=== PATIENT | male | born 1960 | race Caucasian/White ===

== ENCOUNTER 2016-03-30 16:17 | Outpatient (RCR) | payer MEDICAID ==
--- OUTSIDE RECORDS SUMMARY | 2016-02-20 13:42 | XMS REPORT | Continuity of Care Document ---
Author Author [facility] Organization [facility] Address Unknown Phone Unavailable Care Team Providers Care Supervisor Mail Carriers Name Role Phone Unknown, Unknown PCP Unavailable Source Comments Some departments are not documenting in the electronic medical record. If you do not see the information that you expected, contact Release of Information in the Health Information Management department at [phone] for further assistance in locating additional records.[facility] Active Allergies and Adverse Reactions No Known Allergies Current Medications Prescription Sig. Disp. Refills Start End Date Status Date metFORMIN (GLUCOPHAGE) Take 500 mg by mouth Active 500 mg tablet twice daily with meals. OXYCODONE HCL (OXYCODONE Take by mouth as Needed. Active PO) Active Problems Problem Noted Date DLBCL (diffuse large B cell lymphoma) (HCC) 03/26/2014 Testicular mass 03/05/2014 Social History Tobacco Use Types Packs/Day Years Used Date Current Every Day Smoker Cigars 1 40 Smokeless Tobacco: Never Used Alcohol Use Drinks/Week oz/Week Comments Yes occasionally Last Filed Vital Signs Vital Sign Reading Time Taken Blood Pressure 130/79 03/26/2014 2:36 PM TELEPHONE OPERATOR RECEPTIONIST Pulse 78 03/26/2014 2:36 PM TELEPHONE OPERATOR RECEPTIONIST Temperature 36.6 C (97.9 F) 03/26/2014 2:36 PM TELEPHONE OPERATOR RECEPTIONIST Respiratory Rate - - Height 1.749 m (5' 8.85") 03/26/2014 2:36 PM TELEPHONE OPERATOR RECEPTIONIST Weight 102.694 kg (226 lb 6.4 03/26/2014 2:36 PM TELEPHONE OPERATOR RECEPTIONIST oz) Body Mass Index 33.57 03/26/2014 2:36 PM TELEPHONE OPERATOR RECEPTIONIST Oxygen Saturation 96% 03/26/2014 2:36 PM TELEPHONE OPERATOR RECEPTIONIST Plan of Care Health Maintenance Due Date Last Done Comments Hepatitis C Screening 1960 Physical (Comprehensive) 09/13/1967 Exam Pertussis Vaccine 09/13/1971 Tetanus Vaccine 1977 Colorectal Cancer 2010 Screening Influenza Vaccine 01/09/2016 Results from Last 3 Months Not on file
[2016-02-20 13:54] LABS: BASOPHILS % (AUTO) 1 % (0-10); EOSINOPHILS # (AUTO) 0.2 10^3/uL (0.0-0.3); EOSINOPHILS % (AUTO) 3 % (0-10); LYMPHOCYTES # (AUTO) 1.8 X 10^3 (1.0-4.0); LYMPHOCYTES % (AUTO) 25 % (12-44); MEAN CORPUSCULAR HEMOGLOBIN 33 PG (25-34); MEAN CORPUSCULAR HGB CONC 36 G/DL (32-36); MEAN CORPUSCULAR VOLUME 93 FL (80-99); MEAN PLATELET VOLUME 10.9 FL (7.4-10.4); MONOCYTES # (AUTO) 0.7 X 10^3 (0.0-1.0); MONOCYTES % (AUTO) 10 % (0-12); NEUTROPHILS # (AUTO) 4.2 X 10^3 (1.8-7.8); NEUTROPHILS % (AUTO) 61 % (42-75); PLATELET COUNT 215 10^3/uL (130-400); RED CELL DISTRIBUTION WIDTH 13.2 % (10.0-14.5); WHITE BLOOD COUNT 6.9 10^3/uL (4.3-11.0)
[2016-02-20 14:59] LABS: ALANINE AMINOTRANSFERASE 16 U/L (0-55); ALBUMIN 3.7 G/DL (3.2-4.5); ANION GAP 9 MMOL/L (5-14); ASPARTATE AMINO TRANSFERASE 16 U/L (5-34); BILIRUBIN,TOTAL 0.4 MG/DL (0.1-1.0); BLOOD UREA NITROGEN 8 MG/DL (7-18); BUN/CREATININE RATIO 12; CALCIUM 8.5 MG/DL (8.5-10.1); CARBON DIOXIDE 24 MMOL/L (21-32); CHLORIDE 103 MMOL/L (98-107); CREATININE SERUM 0.65 MG/DL (0.60-1.30); GFR ESTIMATED > 60; GLUCOSE 193 MG/DL (70-105); POTASSIUM 3.9 MMOL/L (3.6-5.0); SODIUM 136 MMOL/L (135-145); TOTAL PROTEIN 6.4 G/DL (6.4-8.2)
[~2016-03-30 16:17] MED LIST: ASP81CT; CIPR500T78 PO; GLBR2.5T; HYDR-1231 PO; HYDR-2997 PO; LISI2.5T; MTF500T PO; PRAV10TA23
== END 2016-05-20 | disposition home or self-care (01) ==
LOC: ONC 16:17
PROVIDERS: ATTEND Internal Medicine Hematology & Oncology
DX: C83.39 Diffuse large B-cell lymphoma, extranodal and solid organ sites (principal); E11.42 Type 2 diabetes mellitus with diabetic polyneuropathy; E29.1 Testicular hypofunction; F17.210 Nicotine dependence, cigarettes, uncomplicated; Z92.21 Personal history of antineoplastic chemotherapy; Z79.4 Long term (current) use of insulin; Z79.899 Other long term (current) drug therapy; Z45.2 Encounter for adjustment and management of vascular access device
CPT/HCPCS: 36591; 80053; 85025; 96523; 99213

== ENCOUNTER 2016-05-21 14:38 | Outpatient (RCR) | payer SELFPAY ==
[2016-05-21 14:23] LABS: BASOPHILS # (AUTO) 0.1 10^3/uL (0.0-0.1); BASOPHILS % (AUTO) 1 % (0-10); EOSINOPHILS # (AUTO) 0.3 10^3/uL (0.0-0.3); EOSINOPHILS % (AUTO) 4 % (0-10); LYMPHOCYTES # (AUTO) 2.1 X 10^3 (1.0-4.0); LYMPHOCYTES % (AUTO) 28 % (12-44); MEAN CORPUSCULAR HEMOGLOBIN 33 PG (25-34); MEAN CORPUSCULAR HGB CONC 35 G/DL (32-36); MEAN CORPUSCULAR VOLUME 94 FL (80-99); MEAN PLATELET VOLUME 10.7 FL (7.4-10.4); MONOCYTES # (AUTO) 0.7 X 10^3 (0.0-1.0); MONOCYTES % (AUTO) 9 % (0-12); NEUTROPHILS # (AUTO) 4.3 X 10^3 (1.8-7.8); NEUTROPHILS % (AUTO) 58 % (42-75); PLATELET COUNT 216 10^3/uL (130-400); RED BLOOD COUNT 4.74 10^6/uL (4.35-5.85); RED CELL DISTRIBUTION WIDTH 13.7 % (10.0-14.5); WHITE BLOOD COUNT 7.5 10^3/uL (4.3-11.0)
--- OUTSIDE RECORDS SUMMARY | 2016-05-21 14:41 | XMS REPORT | Continuity of Care Document ---
Author Author [facility] Organization [facility] Address Unknown Phone Unavailable Care Team Providers Care Egg Breaking Machine Operator Name Role Phone Unknown, Unknown PCP Unavailable Source Comments Some departments are not documenting in the electronic medical record. If you do not see the information that you expected, contact Release of Information in the Health Information Management department at [phone] for further assistance in locating additional records.[facility] Active Allergies and Adverse Reactions No Known [...] Taken Blood Pressure 130/79 03/26/2014 2:36 PM CURRENCY EXCHANGE SPECIALIST Pulse 78 03/26/2014 2:36 PM CURRENCY EXCHANGE SPECIALIST Temperature 36.6 C (97.9 F) 03/26/2014 2:36 PM CURRENCY EXCHANGE SPECIALIST Respiratory Rate - - Height 1.749 m (5' 8.85") 03/26/2014 2:36 PM CURRENCY EXCHANGE SPECIALIST Weight 102.694 kg (226 lb 6.4 03/26/2014 2:36 PM CURRENCY EXCHANGE SPECIALIST oz) Body Mass Index 33.57 03/26/2014 2:36 PM CURRENCY EXCHANGE SPECIALIST Oxygen Saturation 96% 03/26/2014 2:36 PM CURRENCY EXCHANGE SPECIALIST Plan of Care Health Maintenance Due Date Last Done Comments Hepatitis C Screening 1960 Physical (Comprehensive) 09/13/1967 Exam Pertussis Vaccine 09/13/1971 Tetanus Vaccine 1977 Colorectal Cancer 2010 Screening Influenza Vaccine 01/09/2016 Results from Last 3 Months Not on file
[2016-05-21 15:01] LABS: ALANINE AMINOTRANSFERASE 14 U/L (0-55); ANION GAP 7 MMOL/L (5-14); ASPARTATE AMINO TRANSFERASE 13 U/L (5-34); BILIRUBIN,TOTAL 0.6 MG/DL (0.1-1.0); BLOOD UREA NITROGEN 9 MG/DL (7-18); BUN/CREATININE RATIO 14; CALCIUM 8.5 MG/DL (8.5-10.1); CARBON DIOXIDE 23 MMOL/L (21-32); CHLORIDE 104 MMOL/L (98-107); CREATININE SERUM 0.66 MG/DL (0.60-1.30); GFR ESTIMATED > 60; GLUCOSE 209 MG/DL (70-105); LACTATE DEHYDROGENASE 185 U/L (125-220); SODIUM 134 MMOL/L (135-145); TOTAL PROTEIN 6.3 G/DL (6.4-8.2)
[2016-08-13 14:21] LABS: BASOPHILS # (AUTO) 0.1 10^3/uL (0.0-0.1); BASOPHILS % (AUTO) 1 % (0-10); EOSINOPHILS # (AUTO) 0.1 10^3/uL (0.0-0.3); EOSINOPHILS % (AUTO) 1 % (0-10); LYMPHOCYTES # (AUTO) 1.6 X 10^3 (1.0-4.0); LYMPHOCYTES % (AUTO) 12 % (12-44); MEAN CORPUSCULAR HEMOGLOBIN 33 PG (25-34); MEAN CORPUSCULAR HGB CONC 35 G/DL (32-36); MEAN CORPUSCULAR VOLUME 95 FL (80-99); MEAN PLATELET VOLUME 11.1 FL (7.4-10.4); MONOCYTES % (AUTO) 7 % (0-12); NEUTROPHILS # (AUTO) 10.8 X 10^3 (1.8-7.8); NEUTROPHILS % (AUTO) 80 % (42-75); PLATELET COUNT 183 10^3/uL (130-400); RED BLOOD COUNT 4.84 10^6/uL (4.35-5.85); RED CELL DISTRIBUTION WIDTH 13.3 % (10.0-14.5); WHITE BLOOD COUNT 13.5 10^3/uL (4.3-11.0)
[2016-08-13 14:53] LABS: ALANINE AMINOTRANSFERASE 8 U/L (0-55); ALBUMIN 3.8 G/DL (3.2-4.5); ANION GAP 8 MMOL/L (5-14); ASPARTATE AMINO TRANSFERASE 11 U/L (5-34); BLOOD UREA NITROGEN 8 MG/DL (7-18); BUN/CREATININE RATIO 12; CALCIUM 8.7 MG/DL (8.5-10.1); CARBON DIOXIDE 25 MMOL/L (21-32); CHLORIDE 100 MMOL/L (98-107); CREATININE SERUM 0.67 MG/DL (0.60-1.30); GFR ESTIMATED > 60; GLUCOSE 199 MG/DL (70-105); LACTATE DEHYDROGENASE 152 U/L (125-220); POTASSIUM 4.2 MMOL/L (3.6-5.0); SODIUM 133 MMOL/L (135-145); TOTAL PROTEIN 6.3 G/DL (6.4-8.2)
== END 2016-08-13 13:38 | disposition home or self-care (01) ==
LOC: ONC 14:38
PROVIDERS: ATTEND Internal Medicine Hematology & Oncology
DX: C83.39 Diffuse large B-cell lymphoma, extranodal and solid organ sites (principal); E11.42 Type 2 diabetes mellitus with diabetic polyneuropathy; E29.1 Testicular hypofunction; F17.210 Nicotine dependence, cigarettes, uncomplicated; Z92.21 Personal history of antineoplastic chemotherapy; Z79.4 Long term (current) use of insulin; Z79.899 Other long term (current) drug therapy
CPT/HCPCS: 80053; 83615; 85025; 99213

== ENCOUNTER 2016-08-13 14:17 | Outpatient (RCR) | payer MEDICARE ==
[2016-12-29] MEDS ORDERED: VENL75CA PO (08:49)
[2016-12-30] MEDS ORDERED: HYDR-3820 PO (13:19)
== END 2016-11-11 | disposition home or self-care (01) ==
LOC: ONC 14:17
PROVIDERS: ATTEND Internal Medicine Hematology & Oncology
DX: C83.39 Diffuse large B-cell lymphoma, extranodal and solid organ sites (principal); E11.42 Type 2 diabetes mellitus with diabetic polyneuropathy; E29.1 Testicular hypofunction; F17.210 Nicotine dependence, cigarettes, uncomplicated; Z92.21 Personal history of antineoplastic chemotherapy; Z79.4 Long term (current) use of insulin; Z79.899 Other long term (current) drug therapy
CPT/HCPCS: 36591; 99213

== ENCOUNTER 2016-11-19 09:17 | Outpatient (RCR) | payer MEDICARE ==
[2016-11-19 09:33] LABS: BASOPHILS # (AUTO) 0.1 10^3/uL (0.0-0.1); BASOPHILS % (AUTO) 1 % (0-10); EOSINOPHILS # (AUTO) 0.3 10^3/uL (0.0-0.3); EOSINOPHILS % (AUTO) 4 % (0-10); LYMPHOCYTES # (AUTO) 2.7 X 10^3 (1.0-4.0); LYMPHOCYTES % (AUTO) 36 % (12-44); MEAN CORPUSCULAR HEMOGLOBIN 33 PG (25-34); MEAN CORPUSCULAR HGB CONC 34 G/DL (32-36); MEAN CORPUSCULAR VOLUME 96 FL (80-99); MONOCYTES # (AUTO) 0.7 X 10^3 (0.0-1.0); MONOCYTES % (AUTO) 9 % (0-12); NEUTROPHILS # (AUTO) 3.8 X 10^3 (1.8-7.8); NEUTROPHILS % (AUTO) 51 % (42-75); PLATELET COUNT 203 10^3/uL (130-400); RED BLOOD COUNT 4.75 10^6/uL (4.35-5.85); RED CELL DISTRIBUTION WIDTH 13.9 % (10.0-14.5); WHITE BLOOD COUNT 7.5 10^3/uL (4.3-11.0)
[2016-11-19 10:16] LABS: ALANINE AMINOTRANSFERASE 12 U/L (0-55); ALBUMIN 3.6 GM/DL (3.2-4.5); ANION GAP 8 MMOL/L (5-14); ASPARTATE AMINO TRANSFERASE 11 U/L (5-34); BILIRUBIN,TOTAL 0.3 MG/DL (0.1-1.0); BLOOD UREA NITROGEN 12 MG/DL (7-18); BUN/CREATININE RATIO 19; CALCIUM 8.2 MG/DL (8.5-10.1); CARBON DIOXIDE 23 MMOL/L (21-32); CHLORIDE 105 MMOL/L (98-107); CREATININE SERUM 0.62 MG/DL (0.60-1.30); GFR ESTIMATED > 60; GLUCOSE 146 MG/DL (70-105); LACTATE DEHYDROGENASE 224 U/L (125-220); POTASSIUM 4.1 MMOL/L (3.6-5.0); SODIUM 136 MMOL/L (135-145); TOTAL PROTEIN 6.3 GM/DL (6.4-8.2)
[2016-12-29] MEDS ORDERED: VENL75CA PO (08:49)
[2016-12-30] MEDS ORDERED: HYDR-3820 PO (13:19)
== END 2016-12-25 08:40 | disposition home or self-care (01) ==
LOC: ONC 09:17
PROVIDERS: ATTEND Internal Medicine Hematology & Oncology
DX: C83.39 Diffuse large B-cell lymphoma, extranodal and solid organ sites (principal); E11.42 Type 2 diabetes mellitus with diabetic polyneuropathy; E29.1 Testicular hypofunction; F17.210 Nicotine dependence, cigarettes, uncomplicated; Z92.21 Personal history of antineoplastic chemotherapy; Z79.4 Long term (current) use of insulin; Z79.899 Other long term (current) drug therapy
CPT/HCPCS: 36591; 80053; 83615; 85025

== ENCOUNTER 2016-12-29 09:00 | Outpatient (CLI) | payer MEDICARE ==
[~2016-12-29] VITALS: Ht 175.3 cm; Wt 108.9 kg
[~2016-12-29 09:00] MED LIST changes: +VENL75CA PO
[2016-12-30] MEDS ORDERED: HYDR-3820 PO (13:19)
== END 2016-12-29 09:47 ==
LOC: PREOP 09:00
PROVIDERS: ATTEND Surgery
DX: Z01.818 Encounter for other preprocedural examination (principal); C62.91 Malignant neoplasm of right testis, unspecified whether descended or undescended

== ENCOUNTER 2016-12-30 10:14 | Day surgery (SDC) | payer MEDICARE ==
[~2016-12-30] VITALS: Ht 175.3 cm; Wt 108.9 kg
[2016-12-30] MEDS ORDERED: ceFAZolin 1,000 MG (ANCEF) VIAL ONE (10:21)
[2016-12-30] MEDS ORDERED: NS (IVPB) 50 ML ONE (10:21)
[2016-12-30 10:30] VITALS: BP 123/80
[2016-12-30] MEDS ORDERED: BUP/EPI 0.5% 1:200,000 (MARCAINE) 10ML VIAL IJ ONE (10:58)
[2016-12-30] MEDS ORDERED: ceFAZolin 1 GM/NS 50 ML IVPB IV ONE ×2 (11:00)
[2016-12-30] MEDS ORDERED: proPOfol 200 MG/20 ML (DIPRIVAN) VIAL IV ONE (11:07)
[2016-12-30] MEDS ORDERED: LACTATED RINGERS 1,000 ML IV PRN (11:07)
[2016-12-30] MEDS ORDERED: fentaNYL INJECTION 100 MCG/2 ML AMP ONE (11:08)
[2016-12-30] MEDS ORDERED: MIDAZOLAM 2 MG/2 ML (VERSED) VIAL ONE (11:08)
[2016-12-30] MEDS ORDERED: PROPOFOL INJECTION 50 ML IV ONE (11:10)
--- NOTE | 2016-12-30 11:34 | Progress Note-Pre Operative ---
Pre-Operative Progress Note H&P Reviewed The H&P was reviewed, patient examined and no changes noted. 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
[2016-12-30] MEDS ORDERED: LACTATED RINGERS 1,000 ML IV ONE (13:08)
--- NOTE | 2016-12-30 13:17 | History & Physicial ---
History of Present Illness History of Present Illness Reason for visit/HPI For removal of [id number], having completed systemic chemotherapy for treated lymphoma of the testicle Date of Admission Date Seen by Provider: Dec 30, 2016 Time Seen by Provider: 09:45 I consulted on this patient on 12/30/16 13:15 Attending Physician Sumi Chahal MD Admitting Physician Aleyda Gross MD Consult Allergies and Home Medications Allergies Coded Allergies: NKANo Known Allergies (Unverified Allergy, Mild, 06/07/09) Home Medications Metformin Hcl 500 Mg Tab, 500 MG PO DAILY, (Reported) Venlafaxine HCl 75 Mg Cap.er.24h, 75 MG PO DAILY, (Reported) Past [id number] Hx Patient Social History Marrital Status: Employed/Student: employed, unemployed Alcohol Use: Denies Use Recreational Drug Use: No Smoking Status: Current Everyday Smoker Type Used: Cigarettes Recent Foreign Travel: No Contact w/other who traveled: No Recent Hopitalizations: No Recent Infectious Disease Expo: No Immunizations Up To Date Tetanus Booster (TDap): More than 5yrs Seasonal Allergies Seasonal Allergies: No Surgeries Testicular Endocrine Endocrine Disorders: Diabetes, Non-Insulin dep Cancer Testicular Blood Transfusions Adverse Reaction to a Blood Tr: No Constitutional: no symptoms reported EENTM: no symptoms reported Respiratory: no symptoms reported Cardiovascular: no symptoms reported Gastrointestinal: no symptoms reported Genitourinary: no symptoms reported Musculoskeletal: no symptoms reported Skin: no symptoms reported Psychiatric/Neurological: No Symptoms Reported Physical Exam Vital Signs Vital Sign - Last 12Hours 12/30/16 10:30 Temp 98.8 Pulse 79 Resp 18 B/P (MAP) 123/80 Pulse Ox 94 O2 Delivery Room Air Capillary Refill : General Appearance: No Apparent Distress HEENT: Normal ENT Inspection Neck: Normal Inspection Respiratory: Lungs Clear Cardiovascular: Regular Rate, Rhythm Extremity: Normal Inspection Neurologic/Psychiatric: Alert, Oriented x3 Assessment/Plan Assessment and Plan Gentleman with treated lymphoma of the testicle. 4 removal of Groshong catheter. Problems: Clinical Quality Measures DVT/VTE Risk/Contraindication: Risk Factor Score Per Nursin RFS Level Per Nursing on Admit: 4+=Very High SUMI CHAHAL MD Dec 30, 2016 1:16 pm
[2016-12-30] MEDS ORDERED: HYDR-3820 PO (13:19)
--- NOTE | 2016-12-30 13:19 | Operative Report ---
Operative Report Date of Procedure/Surgery Dec 30, 2016 Surgeon (s) SUMI CHAHAL MD Keycase Assembler (s): Not applicable Post-Operative Diagnosis Same Procedure Performed Removal of Groshong catheter Description of Procedure Anesthesia Type: MAC Estimated blood loss (mL): Minimal Specimen(s) collected/removed None Description of the Procedure Indication for procedure: This gentleman underwent high orchiectomy to manage lymphoma of the testicle and has since completed systemic chemotherapy. Having consulted with his oncologist, it was felt reasonable to remove his Groshong catheter. Informed consent was obtained after reviewing the procedure in detail. Description of procedure: He was placed supine on the operative table and our anesthesiologist administered sedation, monitoring his vital signs. Ancef was administered intravenously as prophylaxis against wound infection. Sequential compression devices were placed around his legs, to minimize the risk of venous thrombosis. Left infraclavicular fossa was prepared and draped in the usual sterile manner. Local anesthesia was achieved using 0.5 percent Marcaine with epinephrine. A secondary incision was made along the previous are and the Groshong catheter removed without risking air embolism. Hemostasis was achieved using cautery and the incision closed using 3-0 Vicryl for the subcutaneous tissue and 4-0 Vicryl for skin, in a subcuticular fashion He tolerated the procedure well and was taken back to the nursing area in a stable condition Findings of the Procedure See operative report Allergies and Home Medications Allergies Coded Allergies: NKANo Known Allergies (Unverified Allergy, Mild, 06/07/09) Home Medications Metformin Hcl 500 Mg Tab, 500 MG PO DAILY, (Reported) Venlafaxine HCl 75 Mg Cap.er.24h, 75 MG PO DAILY, (Reported) SUMI CHAHAL MD Dec 30, 2016 1:19 pm
--- NOTE | 2016-12-30 13:20 | Discharge Inst-Simple/Standard ---
Discharge Inst-Standard Discharge Medications New, Converted or Re-Newed RX: RX on Chart Patient Instructions/Follow Up Plan of Care/Instructions/FU: Dressing off in 48 hours. Activity as Tolerated: Yes Discharge Diet: No Restrictions SUMI CHAHAL MD Dec 30, 2016 1:20 pm
[2016-12-30] MEDS ORDERED: morphine INJ 10 MG/ML 1ML (SYR OR VIAL) IVP PRN (13:30)
[2016-12-30] MEDS ORDERED: ONDANSETRON 4 MG/2 ML (SDV) Z0FRAN IVP PRN (13:30)
[2016-12-30 13:40] VITALS: BP 119/60
[2016-12-30] MEDS ORDERED: HYDROcodone/APAP 10 MG/325 MG (LORTAB) TAB PO ONE ×2 (13:46→14:00)
[2016-12-30 14:10] VITALS: BP 138/84
== END 2016-12-30 14:10 | disposition home or self-care (01) ==
LOC: SDC 10:14
PROVIDERS: ATTEND Surgery
DX: C83.39 Diffuse large B-cell lymphoma, extranodal and solid organ sites (principal); E11.42 Type 2 diabetes mellitus with diabetic polyneuropathy; Z11.2 Encounter for screening for other bacterial diseases; Z79.899 Other long term (current) drug therapy; F17.210 Nicotine dependence, cigarettes, uncomplicated
CPT/HCPCS: 82962; 87081

== ENCOUNTER → 2017-01-15 | Outpatient (CLI) | payer OTHER ==
[~2017-01-15] MED LIST changes: +HYDR-3820 PO
--- NOTE | 2017-01-15 12:10 | Diagnostic Imaging Report ---
INDICATION: Left knee pain. AP and lateral views of the left knee show no fracture, dislocation, or other acute abnormalities. IMPRESSION: Negative left knee. Dictated by: Dictated on workstation # [id number]
--- NOTE | 2017-01-15 12:27 | Diagnostic Imaging Report ---
INDICATION: Low back pain for two years. Lumbar spine. AP and lateral views of the lumbar spine show degenerative disc changes at L1-L2. There is minimal spondylosis with anterior osteophytes at L3-L4 and L4-L5. There is excess bone arising from the posterior elements on the left at L2-L3 and L3-L4. This may be from a bony fusion but correlation with surgical history recommended. IMPRESSION: There are degenerative changes present in the lumbar spine. There is increased bone in the lumbar spine on the left at L2-L3 and L3-L4 which may be from a bone fusion but clinical correlation recommended. Dictated by: Dictated on workstation # [id number]
== END ==
LOC: RAD 09:57
PROVIDERS: ATTEND Surgery
DX: M47.816 Spondylosis without myelopathy or radiculopathy, lumbar region (principal); M25.562 Pain in left knee; E11.9 Type 2 diabetes mellitus without complications; F33.9 Major depressive disorder, recurrent, unspecified; C85.90 Non-Hodgkin lymphoma, unspecified, unspecified site
CPT/HCPCS: 72100; 73560

== ENCOUNTER 2017-04-20 14:50 | Outpatient (RCR) | payer MEDICARE ==
[2017-04-20 15:03] LABS: BASOPHILS # (AUTO) 0.1 10^3/uL (0.0-0.1); BASOPHILS % (AUTO) 1 % (0-10); EOSINOPHILS # (AUTO) 0.3 10^3/uL (0.0-0.3); EOSINOPHILS % (AUTO) 4 % (0-10); HEMATOCRIT 48 % (40-54); HEMOGLOBIN 16.6 G/DL (13.3-17.7); LYMPHOCYTES % (AUTO) 25 % (12-44); MEAN CORPUSCULAR HEMOGLOBIN 34 PG (25-34); MEAN CORPUSCULAR HGB CONC 35 G/DL (32-36); MEAN CORPUSCULAR VOLUME 97 FL (80-99); MEAN PLATELET VOLUME 11.2 FL (7.4-10.4); MONOCYTES # (AUTO) 0.5 X 10^3 (0.0-1.0); MONOCYTES % (AUTO) 6 % (0-12); NEUTROPHILS # (AUTO) 5.1 X 10^3 (1.8-7.8); NEUTROPHILS % (AUTO) 64 % (42-75); PLATELET COUNT 209 10^3/uL (130-400); RED BLOOD COUNT 4.96 10^6/uL (4.35-5.85)
[2017-04-20 15:29] LABS: ALANINE AMINOTRANSFERASE 12 U/L (0-55); ALKALINE PHOSPHATASE 107 U/L (40-136); BILIRUBIN,TOTAL 0.6 MG/DL (0.1-1.0); BUN/CREATININE RATIO 13; CARBON DIOXIDE 27 MMOL/L (21-32); CHLORIDE 101 MMOL/L (98-107); CREATININE SERUM 0.72 MG/DL (0.60-1.30); GFR ESTIMATED > 60; GLUCOSE 233 MG/DL (70-105); POTASSIUM 4.3 MMOL/L (3.6-5.0); SODIUM 137 MMOL/L (135-145); TOTAL PROTEIN 6.7 GM/DL (6.4-8.2)
== END 2017-07-19 | disposition home or self-care (01) ==
LOC: ONC 14:50
PROVIDERS: ATTEND Internal Medicine Hematology & Oncology
DX: C83.39 Diffuse large B-cell lymphoma, extranodal and solid organ sites (principal); E11.42 Type 2 diabetes mellitus with diabetic polyneuropathy; E29.1 Testicular hypofunction; F17.210 Nicotine dependence, cigarettes, uncomplicated; Z92.21 Personal history of antineoplastic chemotherapy; Z79.4 Long term (current) use of insulin; Z79.899 Other long term (current) drug therapy
CPT/HCPCS: 36415; 80053; 83615; 85025; 99213

== ENCOUNTER 2017-10-20 12:54 | Outpatient (RCR) | payer SELFPAY ==
[2017-10-20 13:11] LABS: BASOPHILS # (AUTO) 0.1 10^3/uL (0.0-0.1); BASOPHILS % (AUTO) 1 % (0-10); EOSINOPHILS # (AUTO) 0.3 10^3/uL (0.0-0.3); EOSINOPHILS % (AUTO) 4 % (0-10); HEMATOCRIT 48 % (40-54); HEMOGLOBIN 16.4 G/DL (13.3-17.7); LYMPHOCYTES # (AUTO) 2.4 X 10^3 (1.0-4.0); LYMPHOCYTES % (AUTO) 29 % (12-44); MEAN CORPUSCULAR HEMOGLOBIN 33 PG (25-34); MEAN CORPUSCULAR HGB CONC 35 G/DL (32-36); MEAN CORPUSCULAR VOLUME 97 FL (80-99); MEAN PLATELET VOLUME 11.4 FL (7.4-10.4); MONOCYTES # (AUTO) 0.7 X 10^3 (0.0-1.0); MONOCYTES % (AUTO) 8 % (0-12); NEUTROPHILS # (AUTO) 4.7 X 10^3 (1.8-7.8); NEUTROPHILS % (AUTO) 57 % (42-75); PLATELET COUNT 193 10^3/uL (130-400); RED BLOOD COUNT 4.93 10^6/uL (4.35-5.85); RED CELL DISTRIBUTION WIDTH 13.4 % (10.0-14.5); WHITE BLOOD COUNT 8.2 10^3/uL (4.3-11.0)
[2017-10-20 13:37] LABS: ALANINE AMINOTRANSFERASE 14 U/L (0-55); ALKALINE PHOSPHATASE 103 U/L (40-136); BILIRUBIN,TOTAL 0.4 MG/DL (0.1-1.0); BUN/CREATININE RATIO 14; CALCIUM 8.9 MG/DL (8.5-10.1); CARBON DIOXIDE 24 MMOL/L (21-32); CHLORIDE 105 MMOL/L (98-107); CREATININE SERUM 0.72 MG/DL (0.60-1.30); GFR ESTIMATED > 60; GLUCOSE 231 MG/DL (70-105); POTASSIUM 4.2 MMOL/L (3.6-5.0); SODIUM 138 MMOL/L (135-145); TOTAL PROTEIN 6.6 GM/DL (6.4-8.2)
== END 2018-01-18 | disposition home or self-care (01) ==
LOC: ONC 12:54
PROVIDERS: ATTEND Internal Medicine Hematology & Oncology
DX: C83.39 Diffuse large B-cell lymphoma, extranodal and solid organ sites (principal); E11.42 Type 2 diabetes mellitus with diabetic polyneuropathy; E29.1 Testicular hypofunction; F17.210 Nicotine dependence, cigarettes, uncomplicated; Z92.21 Personal history of antineoplastic chemotherapy; Z79.4 Long term (current) use of insulin; Z79.899 Other long term (current) drug therapy
CPT/HCPCS: 36415; 80053; 83615; 85025; 99213

== ENCOUNTER → 2018-06-27 | Outpatient (CLI) | payer MEDICARE, OTHER ==
[2018-06-27 15:20] LABS: BASOPHILS # (AUTO) 0.1 10^3/uL (0.0-0.1); BASOPHILS % (AUTO) 1 % (0-10); EOSINOPHILS # (AUTO) 0.4 10^3/uL (0.0-0.3); EOSINOPHILS % (AUTO) 4 % (0-10); HEMATOCRIT 46 % (40-54); HEMOGLOBIN 15.6 G/DL (13.3-17.7); LYMPHOCYTES # (AUTO) 2.3 X 10^3 (1.0-4.0); LYMPHOCYTES % (AUTO) 25 % (12-44); MEAN CORPUSCULAR HEMOGLOBIN 33 PG (25-34); MEAN CORPUSCULAR HGB CONC 34 G/DL (32-36); MEAN CORPUSCULAR VOLUME 97 FL (80-99); MEAN PLATELET VOLUME 11.3 FL (7.4-10.4); MONOCYTES # (AUTO) 0.7 X 10^3 (0.0-1.0); MONOCYTES % (AUTO) 7 % (0-12); NEUTROPHILS # (AUTO) 5.9 X 10^3 (1.8-7.8); NEUTROPHILS % (AUTO) 63 % (42-75); PLATELET COUNT 194 10^3/uL (130-400); RED CELL DISTRIBUTION WIDTH 13.6 % (10.0-14.5); WHITE BLOOD COUNT 9.3 10^3/uL (4.3-11.0)
[2018-06-27 15:47] LABS: ALANINE AMINOTRANSFERASE 15 U/L (0-55); ALKALINE PHOSPHATASE 115 U/L (40-136); BILIRUBIN,TOTAL 0.2 MG/DL (0.1-1.0); BUN/CREATININE RATIO 15; CALCIUM 8.9 MG/DL (8.5-10.1); CARBON DIOXIDE 24 MMOL/L (21-32); CHLORIDE 99 MMOL/L (98-107); CREATININE SERUM 0.74 MG/DL (0.60-1.30); GFR ESTIMATED > 60; GLUCOSE 251 MG/DL (70-105); POTASSIUM 3.9 MMOL/L (3.6-5.0); SODIUM 132 MMOL/L (135-145); TOTAL PROTEIN 6.6 GM/DL (6.4-8.2)
== END ==
LOC: EDSTATUS 01-19 12:02 → ONC 14:59
PROVIDERS: ATTEND Internal Medicine Hematology & Oncology
DX: C83.39 Diffuse large B-cell lymphoma, extranodal and solid organ sites (principal); E11.42 Type 2 diabetes mellitus with diabetic polyneuropathy; E29.1 Testicular hypofunction; F17.210 Nicotine dependence, cigarettes, uncomplicated; Z92.21 Personal history of antineoplastic chemotherapy; Z79.4 Long term (current) use of insulin; Z79.899 Other long term (current) drug therapy
CPT/HCPCS: 36415; 80053; 83615; 85025; 99213